=== PATIENT | female | born 1970 | race Caucasian/White ===

== ENCOUNTER 2016-10-11 07:45 | Day surgery (SDC) | payer BC ==
[2016-10-08 12:35] LABS: BLOOD UREA NITROGEN 16 mg/dL (7-18)
[~2016-10-11] VITALS: Ht 157.5 cm; Wt 76.0 kg
[~2016-10-11 07:45] MED LIST: BACL-19 PO; BUPIVACAINE/PF-EPI 0.25% 1:200K ONE; CYCL5TAB PO; DULO30CA2 PO; FLUT9.9S NAS; GABA-827 PO; MELO-184 PO; OXYC5CAP4 PO
[2016-10-11 08:18] VITALS: BP 120/88
[2016-10-11] MEDS ORDERED: LACTATED RINGERS 1,000 ML IV SCH (08:21)
[2016-10-11 08:29] LABS: HCG UR OBC PASS
[2016-10-11] MEDS ORDERED: LIDOCAINE/PF 1%-EPI 1:200K, 30ML ONE (09:03)
[2016-10-11] MEDS ORDERED: FLUORESCEIN SODIUM 500 MG/5 ML ONE (09:04)
[2016-10-11] MEDS ORDERED: MIDAZOLAM 1 MG/ML, 2ML ONE (09:40)
[2016-10-11] MEDS ORDERED: FENTANYL PF 250 MCG/5ML ONE ×2 (09:40→10:28)
[2016-10-11] MEDS ORDERED: PROPOFOL 10 MG/ML, 20ML ONE (10:17)
[2016-10-11] MEDS ORDERED: CEFAZOLIN 1,000 MG ONE (10:17)
[2016-10-11] MEDS ORDERED: ONDANSETRON 2MG/ML, 2ML ONE (10:17)
[2016-10-11] MEDS ORDERED: KETOROLAC 30 MG/1 ML ONE (10:17)
[2016-10-11] MEDS ORDERED: SUCCINYLCHOLINE 20 MG/ML, 10ML ONE (10:17)
[2016-10-11] MEDS ORDERED: DEXAMETHASONE 4 MG/ML, 1ML ONE (10:17)
[2016-10-11] MEDS ORDERED: METRONIDAZOLE PMX 500MG/100ML 100 ML ONE (10:31)
[2016-10-11] MEDS ORDERED: HYDROmorphone 1 MG/ML, 1ML IV PRN (11:30)
[2016-10-11] MEDS ORDERED: OXYcodone 5 MG/5 ML ORAL.SOL UDC PO PRN (11:30)
[2016-10-11] MEDS ORDERED: MEPERIDINE/PF 25MG/0.5ML IVPush PRN (11:30)
[2016-10-11] MEDS ORDERED: MIDAZOLAM 1 MG/ML, 2ML IV PRN (11:30)
[2016-10-11] MEDS ORDERED: ONDANSETRON 2MG/ML, 2ML IVPush PRN ×2 (11:30→14:00)
[2016-10-11] MEDS ORDERED: ACETAMINOPHEN 325 MG TABLET PO PRN (11:30)
[2016-10-11] MEDS ORDERED: FUROSEMIDE 20 MG/2 ML ONE (11:49)
[2016-10-11] MEDS ORDERED: FENTANYL PF 100 MCG/2ML ONE (12:14)
[2016-10-11] MEDS ORDERED: HYDROmorphone 2 MG/ML, 1ML ONE (12:14)
[2016-10-11] MEDS ORDERED: OXYcodone 5 MG/5 ML ORAL.SOL UDC ONE (12:15)
[2016-10-11] MEDS: FENTANYL PF 100 MCG/2ML IV PRN ×2 (13:01→13:33)
[2016-10-11] MEDS ORDERED: DIPHENHYDRAMINE 50 MG/ML, 1ML IVPush PRN (14:00)
[2016-10-11] MEDS ORDERED: KETOROLAC 30 MG/1 ML IVPush PRN (14:00)
== END 2016-10-11 17:50 | disposition home or self-care (01) ==
LOC: OUT 07:45
PROVIDERS: ATTEND Obstetrics & Gynecology Gynecology
DX: D25.9 Leiomyoma of uterus, unspecified (principal); N80.0 Endometriosis of uterus; N84.0 Polyp of corpus uteri; N81.5 Vaginal enterocele
CPT/HCPCS: 36415; 58550; 80048; 81003; 81025; 84703; 85014; 85025; 88304; 88307; J0330; J0690; J1100; J1170; J1885; J1940; J2250; J2405; J2704; J3010; J3490; J7120